=== PATIENT | female | born 1975 | race African-American/Black ===

== ENCOUNTER 2024-06-25 13:01 | Emergency (ER) | payer MEDICAID, SELFPAY ==
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
--- NOTE | ~2024-06-25 | XR_ITS ---
EXAMINATION: XR_RIBSBI_CR DATE: 06/25/2024 14:36 INDICATION: Chest injury. TECHNIQUE: 2 views of the right ribs on 3 radiographs and 2 views of the left ribs on 3 radiographs w ere obtained. COMPARISON: None. FINDINGS: There is no pneumonia, pleural effusion, or pneumothorax. The heart size is normal. IMPRESSION: 1. No rib fracture. Reviewed, dictated and finalized at location A. ET WELDER HELPER IMPRESSION: 1. No rib fracture.
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
[2024-06-25 13:00] VITALS: BP 178/118; PULSE 78; RESP 19; TEMP 36.8; O2SAT 99
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
[2024-06-25 13:35] VITALS: RESP 19; O2SAT 100
[2024-06-25 13:41] VITALS: BP 185/106; PULSE 72; RESP 19; O2SAT 100
[2024-06-25] MEDS: MORPHINE SULFATE (*CRX) 4 MG/ML INJ IV PUSH ×2 (14:35→16:30)
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
[2024-06-25] MEDS: TETANUS,DIPHTHERIA,AC PERTUSSIS ADULT (0.5 ML) BOOSTRIX IM (16:30)
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
[2024-06-25 18:16] VITALS: BP 178/85; PULSE 87; RESP 19; O2SAT 98
== END 2024-06-25 18:16 | disposition home or self-care (01) ==
PROVIDERS: Emergency Provider Emergency Medicine
DX: S02.2XXA Fracture of nasal bones, initial encounter for closed fracture (principal); S01.81XA Laceration without foreign body of other part of head, initial encounter; Z23 Encounter for immunization; Y04.2XXA Assault by strike against or bumped into by another person, initial encounter
CPT/HCPCS: 12013; 70450; 70486; 71110; 72125; 72170; 90471; 90715; 96374; 96376; 99284; J2270; L0140